=== PATIENT | male | born 1990 | race Caucasian/White ===

== ENCOUNTER 2017-12-06 22:44 | Emergency (ER) | payer MEDICARE, MEDICAID ==
[~2017-12-06] VITALS: Ht 175.3 cm; Wt 81.5 kg
[2017-12-06 22:45] VITALS: BP 124/71; PULSE 71; RESP 16; TEMP 98.1; O2SAT 97
[2017-12-06] MEDS ORDERED: FLUT1SPR5 EACH NARE (23:53)
--- NOTE | 2017-12-06 23:53 | PD ---
HPI Chief Complaint: Foreign Body Time Seen by Provider: 23:29 Travel History International Travel<30 days: No Contact w/Intl Traveler<30days: No Traveled to known affect area: No History of Present Illness HPI 27yo M with PMH of psych disorders who [facility] for evaluation of possibly having something in his nose. Said he has been feeling congestion in his nose for years and thinks that there might be something stuck there. Denies sticking anything up his nose. Denies any fever, chest pain, sob, n/v, abdominal pain, focal weakness or numbness. Pt denies any suicidal or homicidal ideations. PFSH Past Medical History Bipolar Disorder: Yes Depression: Yes Psychiatric: Yes Tetanus Vaccination: < 5 Years Past Surgical History Insulin Pump: No (PATIENT SEDATED UNABLE TO ANSWER QUESTIONS ) Other Surgery: Yes (surgery to forhead) Social History Alcohol Use: No Tobacco Use: No Substance Use: No Allergies-Medications (Allergen,Severity, Reaction): Coded Allergies: penicillin G (Unverified Allergy, Severe, 12/06/17) Reported Meds & Prescriptions Reported Meds & Active Scripts Active Review of Systems Except as stated in HPI: all other systems reviewed are Neg Physical Exam Narrative GENERAL: 27yo M not in distress. SKIN: Focused skin assessment warm/dry. HEAD: Atraumatic. Normocephalic. EYES: Pupils equal and round. No scleral icterus. No injection or drainage. ENT: +Edema in bilateral nasal turbinates. No foreign body noted. Ears: TM wnl bilaterally. Mouth: Uvula midline. Patent airway. NECK: Trachea midline. No JVD. CARDIOVASCULAR: Regular rate and rhythm. No murmur appreciated. RESPIRATORY: No accessory muscle use. Clear to auscultation. Breath sounds equal bilaterally. GASTROINTESTINAL: Abdomen soft, non-tender, nondistended. MUSCULOSKELETAL: No obvious deformities. No clubbing. No cyanosis. No edema. NEUROLOGICAL: Awake and alert. No obvious cranial nerve deficits. Motor grossly within normal limits. Normal speech. Data Data Last Documented VS Vital Signs Date Time Temp Pulse Resp B/P (MAP) Pulse Ox O2 Delivery O2 Flow Rate FiO2 12/06/17 22:45 98.1 71 16 124/71 (88) 97 Room Air MDM Medical Decision Making Medical Screen Exam Complete: Yes Emergency Medical Condition: Yes Differential Diagnosis Nasal congestion vs. possible foreign body in nose Narrative Course 27yo M with bilateral nasal congestion for years. Said there may be foreign body but do not visualize any foreign body. Pt does have history of mental health but currently denies any suicidal or homicidal ideations. Do not think he is a risk to himself or others at this time. Will prescribe flonase and have him follow up with ENT as needed. Return precautions given. Diagnosis Primary Impression: Nasal congestion Referrals: Lee Tillman MD as needed Patient Instructions: General Instructions Departure Forms: Tests/Procedures Additional Instructions: Please follow up with your primary care physician or ENT as needed. Return to the ED if symptoms worsen. Med/Other Pt SpecificInfo: Prescription(s) given Scripts Fluticasone Nasal [place] (Flonase Nasal [place]) 50 Mcg/Act [place] 50 MCG EACH NARE BID for Allergies, #1 BOTTLE 0 Refills Prov: Mishel Argueta DO 12/06/17 Disposition: 01 DISCHARGE HOME Condition: Stable Mishel Argueta DO Dec 06, 2017 23:53
== END 2017-12-07 00:36 | disposition home or self-care (01) ==
LOC: NEPD 22:44
DX: R09.81 Nasal congestion (principal)
CPT/HCPCS: 99283